=== PATIENT | female | born 1945 | race Caucasian/White ===

== ENCOUNTER 2017-08-09 14:50 | Emergency (ER) | payer MEDICARE, OTHER ==
[~2017-08-09] VITALS: Ht 165.1 cm; Wt 77.0 kg
[~2017-08-09 14:50] MED LIST: LORTA5 PO; MEDR4PAK3 PO; SYNT25TA
[2017-08-09 15:05] VITALS: BP 149/85; PULSE 108; RESP 16; TEMP 98.2; O2SAT 99
[2017-08-09] MEDS ORDERED: CETI-1 PO ×2 (15:13)
[2017-08-09] MEDS ORDERED: ZANT300T PO ×2 (15:13)
[2017-08-09] MEDS ORDERED: PRED20 PO ×2 (15:13)
--- NOTE | 2017-08-09 15:14 | PD ---
HPI Chief Complaint: Allergic/Adverse Reaction Time Seen by Provider: 14:57 Travel History International Travel<30 days: No Contact w/Intl Traveler<30days: No Traveled to known affect area: No History of Present Illness HPI 72-year-old female complaining is swelling throat, shortness of breath, itching hives. Patient had outpatient CT scan abdomen and pelvis today. Patient states that she has allergic reaction to the IV contrast. Patient started having problems swallowing, though swelling, itching hives and shortness of breath subsequently. Patient was given IV Solu-Medrol, Benadryl and IM injection of epinephrine. Patient was transported to ED for evaluation. Patient states that she is feeling much better now. Patient denies any problems swallowing or short of breath now. Patient has history of multiple allergies. PFSH Past Medical History Diminished Hearing: No Musculoskeletal: Yes (LEFT ROTATOR CUFF INJURY) Thyroid Disease: Yes Menopausal: Yes Past Surgical History Gynecologic Surgery: Yes ("REMOVED RUPTURED TUBE") Social History Alcohol Use: Yes (OCC) Tobacco Use: No Substance Use: No Allergies-Medications (Allergen,Severity, Reaction): Coded Allergies: Iodinated Contrast- Oral and IV Dye (Verified Allergy, Severe, Anaphylaxis , 08/09/17) Sulfa (Sulfonamide Antibiotics) (Unverified Allergy, Severe, 08/09/17) SWELLING, RASH bee venom protein (honey bee) (Verified Allergy, Severe, Anaphylaxis, ) codeine (Unverified Allergy, Mild, 08/09/17) VOMITING diatrizoate meglumine (Unverified Allergy, Mild, VOMITING, 08/09/17) gadobenic acid (Unverified Allergy, Mild, VOMITING, 08/09/17) gadodiamide (Unverified Allergy, Mild, VOMITING, 08/09/17) gadoteridol (Unverified Allergy, Mild, VOMITING, 08/09/17) iodixanol (Unverified Allergy, Mild, VOMITING, 08/09/17) iohexol (Unverified Allergy, Mild, VOMITING, 08/09/17) Reported Meds & Prescriptions Reported Meds & Active Scripts Active Zantac (Ranitidine HCl) 300 Mg Tab 300 Mg PO DAILY Zyrtec (Cetirizine HCl) 10 Mg Tablet 1 Tab PO DAILY Prednisone 20 Mg Tab 20 Mg PO BID Reported Lortab (Hydrocodone-Acetaminophen) 5-325 Mg Tab 1 Tab PO Q6H PRN Augmentin (Amoxicillin-Clavulanate) 875-125 Mg Tab 1 Tab PO BID Levothyroxine (Levothyroxine Sodium) 75 Mcg Tab 75 Mcg PO DAILY Review of Systems General / Constitutional: No: Fever Eyes: No: Visual changes HENT: No: Headaches Cardiovascular: No: Chest Pain or Discomfort Respiratory: Positive: Shortness of Breath Gastrointestinal: No: Abdominal Pain Genitourinary: No: Dysuria Musculoskeletal: No: Pain Skin: Positive Rash, Positive Itching Neurologic: No: Weakness Psychiatric: No: Depression Endocrine: No: Polydipsia Hematologic/Lymphatic: No: Easy Bruising Physical Exam Narrative GENERAL: Well-nourished, well-developed patient. SKIN: Focused skin assessment warm/dry. HEAD: Normocephalic. EYES: No scleral icterus. No injection or drainage. Throat: No edema. NECK: Supple, trachea midline. No JVD or lymphadenopathy. CARDIOVASCULAR: Regular rate and rhythm without murmurs, gallops, or rubs. RESPIRATORY: Breath sounds equal bilaterally. No accessory muscle use. No stridor or wheezes. GASTROINTESTINAL: Abdomen soft, non-tender, nondistended. MUSCULOSKELETAL: No cyanosis, or edema. BACK: Nontender without obvious deformity. No CVA tenderness. Neurologic exam normal. Data Data Last Documented VS Vital Signs Date Time Temp Pulse Resp B/P (MAP) Pulse Ox O2 Delivery O2 Flow Rate FiO2 08/09/17 16:05 93 16 143/59 (87) 96 08/09/17 15:30 Room Air 08/09/17 15:05 98.2 Orders Orders Ed Discharge Order (08/09/17 16:09) [facility] Medical Decision Making Medical Screen Exam Complete: Yes Emergency Medical Condition: Yes Differential Diagnosis Differential diagnosis including allergic reaction Narrative Course 72-year-old female with throat swelling, shortness of breath, itching hives and shortness of breath after receiving IV contrast for CT scan as outpatient. Patient was given epinephrine, Solu-Medrol, Benadryl prior to arrival. Patient is feeling much better now. Patient will be observed in the ED and then will be discharged home with prescription for prednisone, Zyrtec and Zantac. Diagnosis Primary Impression: Allergic reaction Qualified Codes: T78.40XA - Allergy, unspecified, initial encounter Patient Instructions: General Instructions Additional Instructions: Take medications as directed. Follow-up with personal physician. Return if worse. Return immediately if short of breath or throat swelling. Med/Other Pt SpecificInfo: Prescription(s) given Scripts Ranitidine (Zantac) 300 Mg Tab 300 MG PO DAILY, #10 TAB 0 Refills Prov: Edwar Singer MD 08/09/17 Cetirizine HCl (Zyrtec) 10 Mg Tablet 1 TAB PO DAILY, #10 Prov: Edwar Singer MD 08/09/17 Prednisone (Prednisone) 20 Mg Tab 20 MG PO BID, #10 TAB 0 Refills Prov: Edwar Singer MD 08/09/17 Disposition: 01 DISCHARGE HOME Condition: Stable Edwar Singer MD Aug 09, 2017 15:14
[2017-08-09] MEDS ORDERED: HYDR-3533 PO ×2 (15:23)
[2017-08-09] MEDS ORDERED: LEVO75TA3 PO ×2 (15:23)
[2017-08-09] MEDS ORDERED: AUGM875T3 PO ×2 (15:23)
[2017-08-09 15:30] VITALS: BP 132/55; PULSE 93; RESP 16; O2SAT 95
[2017-08-09 16:05] VITALS: BP 143/59
== END 2017-08-09 16:14 | disposition home or self-care (01) ==
LOC: PHED 14:50
DX: T78.40XA Allergy, unspecified, initial encounter (principal); L50.9 Urticaria, unspecified; X58.XXXA Exposure to other specified factors, initial encounter
CPT/HCPCS: 99284